=== PATIENT | female | born 1960 | race Asian ===

== ENCOUNTER 2020-09-29 14:10 | Emergency (ER) | payer MEDICAID ==
[2020-09-29 14:49] LABS: BASOPHILS % (AUTO) 0.4 %; HCT - HEMATOCRIT 38.8 % (37.0-47.0); HGB - HEMOGLOBIN 12.7 g/dL (12.0-16.0); LYMPHOCYTES # (AUTO) 1.4 10^3/uL (1.5-3.5); LYMPHOCYTES % (AUTO) 17.7 %; MEAN CORPUSCULAR HEMOGLOBIN 30.2 pg (27.0-31.0); MEAN CORPUSCULAR HGB CONC 32.7 g/dL (32.0-36.0); MEAN CORPUSCULAR VOLUME 92.4 fL (81.0-99.0); MEAN PLATELET VOLUME 9.2 fL (7.9-10.8); MONOCYTES # (AUTO) 0.1 10^3/uL (0.0-1.0); MONOCYTES % (AUTO) 1.4 %; NEUTROPHILS # (AUTO) 6.2 10^3/uL (1.5-6.6); NEUTROPHILS % (AUTO) 80.2 %; PLT - PLATELET COUNT 332 10^3/uL (130-450); WHITE BLOOD COUNT 7.7 x10^3/uL (4.8-10.8)
[2020-09-29 14:56] LABS: ALBUMIN 4.5 g/dL (3.2-5.5); ALBUMIN/GLOBULIN RATIO 1.1 (1.0-2.2); BILIRUBIN,TOTAL 0.9 mg/dL (0.2-1.0); CALCIUM 9.6 mg/dL (8.5-10.3); CREATININE 0.6 mg/dL (0.4-1.0); POTASSIUM 3.5 mmol/L (3.5-5.0); TOTAL PROTEIN 8.7 g/dL (6.7-8.2)
--- NOTE | 2020-09-29 14:57 | ED Physician Documentation ---
PD HPI NVD - Stated complaint Stated Complaint: WEAKNESS/VOMITING - Chief complaint Chief Complaint: General - History obtained from History obtained from: Patient - History of Present Illness Timing - onset: How many hours ago (few), Today Timing - duration: Hours (few) Timing - details: Gradual onset, Still present Associated symptoms: Abdominal pain (upper to mid abd pain, with associated nausea and vomiting several times, some loose stool but not overt diarrhea. Has feeling of general weakness and frontal headache too.). No: Fever, Hematemesis, Dysuria Contributing factors: No: Sick contact, Bad food, Recent antibiotics Improved by: No: Vomiting Worsened by: No: Breathing, Position Similar symptoms before: Has not had sx before Recently seen: Surgery (had emergency gallblasser surgery 3 weeks ago in [facility]) and has been doing well post op. Here to be with family on recovery. Onset this morning of above symptoms.No unusual foods.Got COVID vaccine 2 months ago, not recent.) Review of Systems Constitutional: denies: Fever, Chills Nose: denies: Rhinorrhea / runny nose, Congestion Throat: denies: Sore throat Cardiac: denies: Chest pain / pressure, Palpitations Respiratory: denies: Cough GI: reports: Abdominal Pain, Nausea, Vomiting (5-6 times this morning), Diarrhea (loose today). denies: Abdominal Swelling, Constipation : denies: Dysuria, Frequency Skin: denies: Rash, Lesions Musculoskeletal: denies: Extremity swelling Neurologic: reports: Generalized weakness, Headache. denies: Focal weakness, Numbness, Near syncope, Confused, Altered mental status PD PAST MEDICAL HISTORY - Past Medical History Cardiovascular: Hypertension Respiratory: None Neuro: Migraines Endocrine/Autoimmune: None GI: None HEENT: None - Past Surgical History General: Cholecystectomy (3 weeks ago) - Present Medications Home Medications: Ambulatory Orders Medication Instructions Recorded Confirmed Escitalopram [Lexapro] 20 mg PO DAILY 09/29/20 09/29/20 Folic Acid 1 tab PO DAILY 09/29/20 09/29/20 HYDROcod/ACETAM 5/325 [[place] 5/325] 1 ea PO Q6H PRN #12 tablet 09/29/20 Loratadine [Claritin] 10 mg PO DAILY 09/29/20 09/29/20 Methotrexate [Methotrexate Sodium] 10 mg PO DAILY 09/29/20 09/29/20 Naproxen [EC-Naprosyn] 375 mg PO BID 09/29/20 09/29/20 Ondansetron Odt [Zofran] 4 mg TL Q6H PRN #10 tablet 09/29/20 SUMAtriptan [Imitrex] 50 mg PO PRN PRN 09/29/20 09/29/20 Secukinumab [Cosentyx (2 Syringes)] 150 mg IM ONCE 09/29/20 09/29/20 Venlafaxine [Effexor] 1 tab PO DAILY 09/29/20 09/29/20 - Allergies Allergies/Adverse Reactions: Allergies Allergy/AdvReac Type Severity Reaction Status Date / Time Latex, Natural Rubber Allergy Itching Verified 09/29/20 14:13 - Living Situation Living Situation: reports: With family Living Arrangement: reports: At home (recently up here from [place] recovering post CCY) - Social History Does the pt smoke?: No Does the pt drink ETOH?: No PD ED PE NORMAL - Vitals Vital signs reviewed: Yes - General General: Alert and oriented X 3, Well developed/nourished, Other (appears uncomfortable on exam. ) - HEENT HEENT: Pharynx benign - Neck Neck: Supple, no meningeal sign, No adenopathy - Cardiac Cardiac: RRR, No murmur - Respiratory Respiratory: Clear bilaterally - Abdomen Abdomen: Soft, Non distended, No organomegaly, Other (tender epigastric and RUQ area without percussion nor rebound. Bowel sounds normal. ) - Back Back: No CVA TTP - Derm Derm: Normal color, Warm and dry - Extremities Extremities: No tenderness to palpate, Normal ROM s pain, No edema, No calf tenderness / cord - Neuro Neuro: Alert and oriented X 3, No motor deficit, No sensory deficit, Normal speech Eye Opening: Spontaneous Motor: Obeys Commands Verbal: Oriented GCS Score: 15 Results - Vitals Vitals: Vital Signs - 24 hr 09/29/20 09/29/20 09/29/20 14:13 15:13 15:30 Temperature 36.6 C Heart Rate 72 75 79 Respiratory 16 23 20 Rate Blood Pressure 170/80 H 176/95 H 142/81 H O2 Saturation 97 95 82 L 05/10/21 05/10/21 05/10/21 15:57 16:40 17:30 Temperature Heart Rate 84 87 87 Respiratory 16 16 21 Rate Blood Pressure 143/84 H 136/75 H 134/81 H O2 Saturation 97 93 94 09/29/20 09/29/20 17:54 18:34 Temperature Heart Rate 82 87 Respiratory 15 15 Rate Blood Pressure 146/79 H 115/78 O2 Saturation 92 91 L Oxygen O2 Source Room air - Labs Labs: Laboratory Tests 09/29/20 09/29/20 09/29/20 14:39 14:39 18:38 WBC 7.7 RBC 4.20 Hgb 12.7 Hct 38.8 MCV 92.4 MCH 30.2 MCHC 32.7 RDW 13.0 Plt Count 332 MPV 9.2 Neut # (Auto) 6.2 Lymph # (Auto) 1.4 L [place] # (Auto) 0.1 Eos # (Auto) 0.0 Baso # (Auto) 0.0 Absolute Nucleated RBC 0.00 Nucleated RBC % 0.0 Sodium 138 Potassium 3.5 Chloride 100 L Carbon Dioxide 26 Anion Gap 12.0 BUN 12 Creatinine 0.6 Estimated GFR (MDRD) 102 Glucose 157 H Calcium 9.6 Total Bilirubin 0.9 AST 26 ALT 37 Alkaline Phosphatase 66 Total Protein 8.7 H Albumin 4.5 Globulin 4.2 Albumin/Globulin Ratio 1.1 Lipase 26 Urine Color YELLOW Urine Clarity CLEAR Urine pH 6.0 Ur Specific [place] 1.010 Urine Protein NEGATIVE Urine Glucose (UA) NEGATIVE Urine Ketones TRACE Urine Occult Blood MODERATE H Urine Nitrite NEGATIVE Urine Bilirubin NEGATIVE Urine Urobilinogen 0.2 (NORMAL) Ur Leukocyte Esterase NEGATIVE Urine RBC 6-10 H Urine WBC 0-3 Ur Squamous Epith Cells FEW Squamous Urine Bacteria Rare Ur Microscopic Review INDICATED Urine Culture Comments NOT INDICATED - Rads (name of study) abd/pelvic CT Radiology: Prelim report reviewed (no signs of fluid collection in surgical area. No obstruction. No acute process. ), See rad report PD MEDICAL DECISION MAKING - ED course Complexity details: considered differential (3 weeks post CCY with abrupt nausea vomiting and upper abd pain. Labs and CT do not reveal obvious significant cause. She is feeling better with fluids/meds. Able to take PO here. Still with some headache frontal area. ), d/w patient Departure - Departure Disposition: 01 Home, Self Care Clinical Impression: Upper abdominal pain, Status post cholecystectomy Nausea and vomiting Qualifiers: Vomiting type: unspecified Vomiting Intractability: non-intractable Qualified Code(s): R11.2 - Nausea with vomiting, unspecified Headache Qualifiers: Headache type: unspecified Headache chronicity pattern: acute headache Intractability: not intractable Qualified Code(s): R51.9 - Headache, unspecified Condition: Stable Record reviewed to determine appropriate education?: Yes Instructions: ED Nausea Vomiting Prescriptions: HYDROcod/ACETAM 5/325 [[place] 5/325] 1 ea PO Q6H PRN #12 tablet PRN Reason: Pain Ondansetron Odt [Zofran] 4 mg TL Q6H PRN #10 tablet PRN Reason: Nausea / Vomiting Comments: With results of your CT scan and blood tests, there is no signs of more serious cause of your symptoms infection, leakage, obstruction or pancreas problems. Presume there is some possible food intolerance or intestinal virus. Commonly these causes will just last for a day or 2. Small frequent fluids and bland food tonight and into tomorrow. Add ondansetron if needed for nausea. Add Tylenol or pain medicine if needed for pain or headache. Stay well-hydrated. Recheck if not improved back to your baseline over the next day or 2 and return if worsening symptoms again. Discharge Date/Time: 09/29/20 18:51
[2020-09-29] MEDS ORDERED: SODIUM CHLORIDE 0.9% 1,000 ML IV STA (15:14)
[2020-09-29] MEDS ORDERED: ONDANSETRON 4 MG/2 ML VIAL IVP STA (15:14)
[2020-09-29] MEDS ORDERED: MORPHINE 2 MG/ML CARPUJECT IVP STA (15:15)
[2020-09-29] MEDS ORDERED: FAMOTIDINE 20 MG/2 ML VIAL IVP STA (15:15)
[2020-09-29] MEDS ORDERED: IOPAMIDOL-300 100 ML VIAL ONE (15:30)
--- NOTE | 2020-09-29 16:21 | CT Report ---
PROCEDURE: Abdomen/Pelvis W INDICATIONS: 3 wks post op CCY; NVD today CONTRAST: IV CONTRAST: Isovue 300 ml: 100 PO CONTRAST: *NO PO CONTRAST TECHNIQUE: After the administration of IV contrast, 5 mm thick sections acquired from the diaphragms to the symp hysis. 5 mm thick coronal and sagittal reformats were acquired. For radiation dose reduction, the f ollowing was used: automated exposure control, adjustment of mA and/or kV according to patient size. COMPARISON: None. FINDINGS: Image quality: Excellent. ABDOMEN: Lung bases: Bibasilar dependent atelectasis are seen posteriorly. Heart size is normal. Solid organs: Liver and spleen are normal in size and enhancement. Small hypodense area involving i nferior aspect of right hepatic lobe measures 3 mm in size is seen series 3 image 32 and is too small to adequately characterize. Gallbladder is surgically absent. No fluid collection or inflammatory ch anges are noted in gallbladder fossa. Biliary system is non dilated. Pancreas enhances normally. N o adrenal nodules. Kidneys demonstrate normal size and enhancement, without hydronephrosis. Peritoneum and bowel: Bowel loops demonstrate normal wall thickness and caliber. No free fluid or a ir. Nodes and vessels: No retroperitoneal or mesenteric adenopathy by size criteria. Aorta and inferior vena cava are normal in size. Miscellaneous: No ventral hernias. PELVIS: Genitourinary: Bladder wall thickness is normal. Miscellaneous: No inguinal hernias or adenopathy. Bones: No suspicious bony lesions. No vertebral body compression fractures. Degenerative disc dise ase throughout lower thoracic and lumbar spine is seen. IMPRESSION: 1. No acute inflammatory process is seen within abdomen or pelvis. No bowel obstruction. No free flui d of free air. No abnormal bowel wall thickening. 2. Gallbladder is surgically absent. No fluid collection or inflammation is seen in gallbladder fossa . 3. Tiny hypodensity involving inferior right hepatic lobe and likely represent benign process such as hepatic cyst or hemangioma. Reviewed by: Ben Tapia MD on 09/29/2020 4:20 PM PDT Approved by: Ben Tapia MD on 09/29/2020 4:20 PM PDT Station ID: [id number]
[2020-09-29] MEDS ORDERED: IOPAMIDOL-300 100 ML VIAL IVP ONE (17:15)
[2020-09-29] MEDS ORDERED: HYDROmorphone 1 MG/ML CARPUJECT IVP STA (17:41)
[2020-09-29 18:35] VITALS: BP 115/78
[2020-09-29 19:09] LABS: BILIRUBIN,URINE NEGATIVE (NEGATIVE); GLUCOSE, URINE (UA) NEGATIVE (NEGATIVE); KETONES,URINE (UA) TRACE mg/dL (NEGATIVE); LEUKOCYTE ESTERASE, URINE NEGATIVE (NEGATIVE); NITRITE,URINE NEGATIVE (NEGATIVE); OCCULT BLOOD,URINE MODERATE (NEGATIVE); PROTEIN,URINE NEGATIVE (NEGATIVE); UROBILINOGEN,URINE 0.2 (NORMAL) E.U./dL (NORMAL)
[2020-09-29 19:14] LABS: CLARITY,URINE CLEAR (CLEAR)
[2020-09-29 19:30] LABS: BACTERIA,URINE Rare /HPF (None Seen); SQUAMOUS EPITHELIAL CELL,UR FEW Squamous (<= Few); WBC,URINE 0-3 /HPF (0-5)
== END 2020-09-29 18:51 | disposition home or self-care (01) ==
LOC: ED 14:10
DX: R10.11 Right upper quadrant pain (principal); R10.13 Epigastric pain; Z90.49 Acquired absence of other specified parts of digestive tract; R11.2 Nausea with vomiting, unspecified; R51.9 Headache, unspecified; I10 Essential (primary) hypertension
CPT/HCPCS: 36415; 74177; 80053; 81001; 83690; 85025; 96361; 96374; 96375; 99283; 99284; J1170; Q9967; 81003; 87086

== ENCOUNTER 2023-03-11 08:34 | Emergency (ER) | payer MEDICAID ==
--- NOTE | 2023-03-11 09:19 | ED Physician Documentation ---
History of Present Illness - Stated complaint Stated Complaint: BILAT HAND PX,LT LEG PX - Chief complaint Chief Complaint: General - History obtained from History obtained from: Patient - History of Present Illness Timing: How many days ago (few days) Severity Comments: graudal increase in joint pains without obvious precipitant. Feels arthriti Quality: pains in wrists, left elbow, knees andparticularly left knee, which is also swollen with some lower leg edema for few days. Has had the joint pains occur in the past with psoriatic arthritis flare ups. No noted precipitant this week (no URI, fevers, GI symptoms,e tc). Review of Systems Constitutional: denies: Fever, Chills Nose: denies: Rhinorrhea / runny nose, Congestion Throat: denies: Sore throat Respiratory: denies: Cough GI: denies: Vomiting, Diarrhea Skin: reports: Rash (has flare of scaly rash around left ear and neck.) Musculoskeletal: reports: Joint pain (mulitple), Joint swelling (left knee). denies: Neck pain, Back pain PD PAST MEDICAL HISTORY - Past Medical History Cardiovascular: Hypertension Respiratory: None Neuro: Migraines Endocrine/Autoimmune: None GI: None HEENT: None - Past Surgical History General: Cholecystectomy - Present Medications Home Medications: Ambulatory Orders Medication Instructions Recorded Confirmed Escitalopram [Lexapro] 20 mg PO DAILY 09/29/20 09/29/20 Folic Acid 1 tab PO DAILY 09/29/20 09/29/20 HYDROcod/ACETAM 5/325 [[place] 5/325] 1 ea PO Q6H PRN #12 tablet 09/29/20 Loratadine [Claritin] 10 mg PO DAILY 09/29/20 09/29/20 Methotrexate [Methotrexate Sodium] 10 mg PO DAILY 09/29/20 09/29/20 Naproxen [EC-Naprosyn] 375 mg PO BID 09/29/20 09/29/20 Ondansetron Odt [Zofran] 4 mg TL Q6H PRN #10 tablet 09/29/20 SUMAtriptan [Imitrex] 50 mg PO PRN PRN 09/29/20 09/29/20 Secukinumab [Cosentyx (2 Syringes)] 150 mg IM ONCE 09/29/20 09/29/20 Venlafaxine [Effexor] 1 tab PO DAILY 09/29/20 09/29/20 Oxycodone HCl/Acetaminophen 1 each PO Q6H PRN #20 tablet 03/11/23 [Percocet 5-325 mg Tablet] Triamcinolone 0.1% Cream [Kenalog 1 applic TOP BID #15 gm 03/11/23 0.1% Cream] dexAMETHasone [Decadron] 4 mg PO DAILY #10 tablet 03/11/23 oxyCODONE [Roxicodone] 5 mg PO Q6H PRN #20 tablet 03/11/23 - Allergies Allergies/Adverse Reactions: Allergies Allergy/AdvReac Type Severity Reaction Status Date / Time Latex, Natural Rubber Allergy Itching Verified 09/29/20 14:13 - Social History Does the pt smoke?: No Smoking Status: Never smoker Does the pt drink ETOH?: No PD ED PE NORMAL - Vitals Vital signs reviewed: Yes - General General: Alert and oriented X 3, No acute distress, Well developed/nourished - HEENT HEENT: Pharynx benign - Neck Neck: Supple, no meningeal sign, No adenopathy - Cardiac Cardiac: RRR, No murmur - Respiratory Respiratory: Clear bilaterally - Abdomen Abdomen: Soft, Non tender - Back Back: No spinal TTP - Derm Derm: Normal color, Warm and dry, Other (left posterior auricular and neck area with scaly demarcated patch of rash c/w psoriatic. ) - Extremities Extremities: Other (left leg with some edema and mild calf tenderness. There is fullneess rounded in popliteal area c/w cyst liekly. No joint effusion and ligament testing withut laxity. ). No: Normal ROM s pain (has pain on ROM of both wrists, left elbow, both kenes without redness warmth nor effusions. ) - Neuro Neuro: No motor deficit, No sensory deficit Results - Vitals Vitals: Vital Signs - 24 hr 03/11/23 03/11/23 08:48 11:43 Temperature 36.6 C 36.4 C L Heart Rate 98 90 Respiratory 16 18 Rate Blood Pressure 144/77 H 118/81 H O2 Saturation 96 97 Oxygen O2 Source Room air - Labs Labs: Laboratory Tests 03/11/23 03/11/23 09:54 09:54 WBC 8.4 RBC 4.06 L Hgb 11.9 L Hct 37.5 MCV 92.4 MCH 29.3 MCHC 31.7 L RDW 12.7 Plt Count 439 MPV 8.4 Neut # (Auto) 5.6 Lymph # (Auto) 1.9 [place] # (Auto) 0.8 Eos # (Auto) 0.1 Baso # (Auto) 0.1 Absolute Nucleated RBC 0.00 Nucleated RBC % 0.0 Sodium 136 Potassium 4.1 Chloride 102 Carbon Dioxide 28 Anion Gap 6.0 BUN 10 Creatinine 0.6 Estimated GFR (MDRD) 101 Glucose 101 Calcium 9.8 Total Bilirubin 0.4 AST 22 ALT 36 Alkaline Phosphatase 86 Total Protein 7.6 Albumin 3.7 Globulin 3.9 Albumin/Globulin Ratio 0.9 L Lipase 24 - Rads (name of study) duplex left leg Relevant Findings:: Other (US tech - no DVT> Bakers cyst noted and tender. ) PD Medical Decision Making - ED course Complexity details: reviewed results (left leg without DVT. NBakers cyst found popliteal area. ), considered differential (Sounds like an exacerbation of her psoriatic arthritis in multiple joints. She states she has had these joints involved before. She also has swelling in the left leg with pain at the left knee in particular in fullness and tenderness in the popliteal area. Can get ultrasound as well as labs.), d/w patient Departure - Departure Disposition: 01 Home, Self Care Clinical Impression: Psoriatic arthritis, Polyarthralgia, Millan's cyst of knee, Leg edema, left Condition: Stable Record reviewed to determine appropriate education?: Yes Follow-Up: [facility] [Provider Group] Prescriptions: dexAMETHasone [Decadron] 4 mg PO DAILY #10 tablet Triamcinolone 0.1% Cream [Kenalog 0.1% Cream] 1 applic TOP BID #15 gm Oxycodone HCl/Acetaminophen [Percocet 5-325 mg Tablet] 1 each PO Q6H PRN #20 tablet PRN Reason: pain oxyCODONE [Roxicodone] 5 mg PO Q6H PRN #20 tablet PRN Reason: Pain Comments: We can treat the flareup of your psoriatic arthritis with a course of steroids as well as adding Tylenol 500 to 650 mg 4 times daily oral and adding oxycodone every 6 hours if needed for worse pain. Hopefully this will be short-term with improvement on your symptoms with the steroid dosing. Continue your other usual medicines. Your leg ultrasound did not show any signs of clots. There is a cyst in the backside of the left knee which is an outpouching of the joint capsule. This may be contributing to some of the swelling in the leg and impairing some of the return venous flow. Again there were no clots on the ultrasound. He can follow-up with orthopedics regarding the Millan's cyst. This can be drained or repaired if symptomatic enough. Call for an appointment. I sent your prescriptions to [facility] pharmacy. Recheck if not improving well over the next several days regarding the general joint pains etc. I also prescribed a topical steroid that you can use on some of the psoriatic rash areas. I am prescribing a short course of narcotic pain medication for you. These are potentially dangerous and addictive medications that should be used carefully. These medications may constipate you. Take an [id number] stool softener such as docusate twice daily with plenty of water while taking these medications. If you go 24 hours without a bowel movement, take [id number] MiraLAX, per package instructions. Do not drink or drive while taking these medications. If you received narcotic or sedating medications while in the emergency department do not drive for 24 hours. Store this medication in a safe, secure place and out of reach of children. It is a violation of federal law to give or sell this medication to another person or to use in a manner other than prescribed. The ED will not refill narcotic prescriptions, including prescriptions lost or stolen. You can dispose of unwanted medications at the [facility]'s office or at several pharmacies such as [facility]. Forms: PCP List Discharge Date/Time: 03/11/23 11:43
[2023-03-11] MEDS ORDERED: HYDROmorphone 1 MG/ML CARPUJECT IM STA (09:46)
[2023-03-11] MEDS ORDERED: dexAMETHasone 4 MG TABLET PO STA (09:46)
[2023-03-11] MEDS ORDERED: KETOROLAC 30 MG/ML VIAL IM STA (09:46)
[2023-03-11 09:59] LABS: BASOPHILS # (AUTO) 0.1 10^3/uL (0.0-0.1); BASOPHILS % (AUTO) 0.6 %; EOSINOPHILS # (AUTO) 0.1 10^3/uL (0.0-0.7); EOSINOPHILS % (AUTO) 1.4 %; HCT - HEMATOCRIT 37.5 % (37.0-47.0); HGB - HEMOGLOBIN 11.9 g/dL (12.0-16.0); LYMPHOCYTES # (AUTO) 1.9 10^3/uL (1.5-3.5); MEAN CORPUSCULAR HEMOGLOBIN 29.3 pg (27.0-31.0); MEAN CORPUSCULAR HGB CONC 31.7 g/dL (32.0-36.0); MEAN CORPUSCULAR VOLUME 92.4 fL (81.0-99.0); MEAN PLATELET VOLUME 8.4 fL (7.9-10.8); MONOCYTES # (AUTO) 0.8 10^3/uL (0.0-1.0); MONOCYTES % (AUTO) 8.9 %; NEUTROPHILS # (AUTO) 5.6 10^3/uL (1.5-6.6); NEUTROPHILS % (AUTO) 65.9 %; PLT - PLATELET COUNT 439 10^3/uL (130-450); RED BLOOD COUNT 4.06 10^6/uL (4.20-5.40); RED CELL DISTRIBUTION WIDTH 12.7 % (12.0-15.0); WHITE BLOOD COUNT 8.4 x10^3/uL (4.8-10.8)
[2023-03-11 10:17] LABS: ALBUMIN 3.7 g/dL (3.2-5.5); ALBUMIN/GLOBULIN RATIO 0.9 (1.0-2.2); BILIRUBIN,TOTAL 0.4 mg/dL (0.2-1.0); CALCIUM 9.8 mg/dL (8.5-10.3); CREATININE 0.6 mg/dL (0.6-1.3); POTASSIUM 4.1 mmol/L (3.5-4.5); TOTAL PROTEIN 7.6 g/dL (6.4-8.9)
--- NOTE | 2023-03-11 10:47 | Ultrasound Report ---
PROCEDURE: Duplex Ext Veins Left INDICATIONS: left lower leg edema/pain. h/o arthritis/psoriasis TECHNIQUE: Real-time imaging, as well as color and pulse Doppler interrogation, were performed of the lower extr emity deep veins from the inguinal ligament to the popliteal fossa. Attempted visualization of the ca lf veins was performed. COMPARISON: None. FINDINGS: The deep veins are normally compressible, and free of intraluminal thrombus. Color and pu lse Doppler demonstrate normal phasic intraluminal flow. There is normal augmentation response to di stal compression maneuver. Popliteal fossa cyst measuring 5.0 x 2.0 x 5.8 cm. IMPRESSION: No deep venous thrombosis of the visualized lower extremity. Complex cyst within the popliteal fossa measuring 8 cm, may represent a Millan's cyst. Reviewed by: Marco Gómez MD on 03/11/2023 10:45 AM PDT Approved by: Marco Gómez MD on 03/11/2023 10:45 AM PDT Station ID: [id number]
[2023-03-11] MEDS ORDERED: oxyCODONE 5 MG TABLET PO STA (11:26)
[2023-03-11] MEDS ORDERED: ACETAMINOPHEN 325 MG TABLET PO STA (11:27)
[2023-03-11 11:49] VITALS: BP 118/81; O2SAT 97
== END 2023-03-11 11:43 | disposition home or self-care (01) ==
LOC: ED 08:34
DX: L40.50 Arthropathic psoriasis, unspecified (principal); M25.50 Pain in unspecified joint; M71.22 Synovial cyst of popliteal space [Baker], left knee; R60.0 Localized edema
CPT/HCPCS: 36415; 80053; 83690; 85025; 93971; 96372; 99284; A9270; J1170; J8540